=== PATIENT | female | born 1945 | race Two or more races ===

== ENCOUNTER 2017-03-04 11:32 | Inpatient (IN) | payer MEDICARE ==
[2017-03-04] MEDS ORDERED: Magnesium Hydroxide LIQ* 30 ML UDC PO PRN (16:11)
[2017-03-04] MEDS: oxyCODONE TAB* 5 MG TAB PO PRN ×2 (18:13→22:20)
[2017-03-04] MEDS: Senna TAB PO PRN (20:07)
[2017-03-04] MEDS: Docusate CAP* 100 MG PO SCH (20:08)
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
[2017-03-05] MEDS: Acetaminophen TAB* 325 MG PO PRN ×3 (00:25→16:09)
[2017-03-05] MEDS: oxyCODONE TAB* 5 MG TAB PO PRN ×4 (05:39→22:42)
[2017-03-05] MEDS: Montelukast Sodium TAB* 10 MG PO SCH (08:19)
[2017-03-05] MEDS: Docusate CAP* 100 MG PO SCH ×3 (08:19→21:30)
[2017-03-05 08:44] LABS: Hematocrit 30 % (35-47); Hemoglobin 10.1 g/dl (12.0-16.0); Mean Corpuscular HGB Conc 34 g/dl (31-36); Mean Corpuscular Hemoglobin 34 pg (27-31); Mean Corpuscular Volume 100 fL (80-97); Mean Platelet Volume 8 um3 (7.4-10.4); Red Blood Count 2.98 10^6/ul (4.0-5.4); Red Cell Distribution Width 13 % (10.5-15); White Blood Count 5.4 10^3/ul (3.5-10.8)
[2017-03-05 09:01] LABS: BUN/Creatinine Ratio 21.4 (8-20); Calcium 8.6 mg/dL (8.6-10.3); EGFR African American 106.7 (>60); Globulin 2.6 g/dL (2-4); Potassium 3.6 mmol/L (3.5-5.0); Total Bilirubin 0.5 mg/dL (0.2-1.0); Total Protein 5.6 g/dL (6.4-8.9)
--- NOTE | 2017-03-05 12:36 | PMRUTEAM ---
PMRU: Goals Current Status: Nursing: Current Status Skin Deviations [left flank] Abrasion Skin Deviations [Left Leg] Incision Physical Therapy: Current Status Bed Mobility Assistance 2 MIN ASSIST Transfer Moblility Assistance CHERELLE/ TOTAL ASSIST Ambulation Assistance NOT TESTED OCCUPATIONAL THERAPY: CURRENT STATUS: MAX ASSIST DRESSING AND TOILETING. BATHING MAX ASSIST. Rec Therapy: Current Status Summary of Assessment and Pt. was recently admitted, open to conversation Clinical Impression and engaged throughout. Pt. is a very physically active person and hopes to get back into these activities as soon as she can. Pt. was open to continued leisure visits and was interested in RT groups such as scrabble. Treatment Goals Pt. will engage in leisure activities while on the unit. Treatment Plan Provide RT services and encourage involvement. Social Work: Current Status Discharge Plan return home with home care svs and family support Potential for Family Training pt's is attentive and involved Anticipated Discharge Home Destination Discharge With return home with home care svs and family support Goals: PHYSICAL THERAPY GOALS: modified independent transfers with a walker. independent bed mobility. modified independent ambulation maintaining ttwb in LLE 50ft. 3 stairs. OCCUPATIONAL THERAPY GOALS: modified independent toileting, bathing, dressing, grooming, light household tasks. Social Work: Goals Discharge Plan return home with home care svs and family support Potential for Family Training pt's is attentive and involved Anticipated Discharge Home Destination Discharge With return home with home care svs and family support Care Plan: Care Plan DVT Prophylaxis- Improve/Maintain Start: 03/04/17 21:37 Freq: QSHIFT Status: Active Target: Activity Type Activity Date Activity User E-Sign Co-Sign Detail Recorded Client Recorded Date Recorded By Document 03/04/17 21:37 [id number] 03/04/17 21:38 [id number] 03/04/17 21:37 PMRU Outcome: DVT Prophylaxis Outcome/Goals Remains Free of DVT TEDS Stockings on Every AM, Off at HS Progression Toward Outcome/Goals Progressing Education-Improve/Maintain Start: 03/04/17 21:37 Freq: QSHIFT Status: Active Target: Activity Type Activity Date Activity User E-Sign Co-Sign Detail Recorded Client Recorded Date Recorded By Document 03/04/17 21:37 [id number] [id number] 03/04/17 21:38 [id number] 03/04/17 21:37 PMRU Outcome: Education Outcome/Goals Demonstrate/ Verbalize Understanding of Written Discharge Instructions Demonstrates Skills Encourage Questions Progression Toward Outcome/Goals Progressing Neurological- Improve/Maintain Start: 03/04/17 21:37 Freq: QSHIFT Status: Active Target: Activity Type Activity Date Activity User E-Sign Co-Sign Detail Recorded Client Recorded Date Recorded By Document 03/04/17 21:37 [id number] 03/04/17 21:38 [id number] 03/04/17 21:37 PMRU Outcome: Neurological Weakness/Aphasia Weakness Outcome/Goals Maintain/ Achieve Baseline Neurological Status Improve Neurological Status Maintain/ Improve Strength/ROM Progression Toward Outcome/Goals Progressing Pain/Comfort- Improve/Maintain Start: 03/04/17 21:37 Freq: QSHIFT Status: Active Target: Activity Type Activity Date Activity User E-Sign Co-Sign Detail Recorded Client Recorded Date Recorded By Document 03/04/17 21:37 [id number] 03/04/17 21:38 [id number] 03/04/17 21:37 PMRU Outcome: Pain/Comfort Outcome/Goals Demonstrates Knowledge and Use of Available Comfort Measures Maintain Comfort Level Allowing Patient to Fully Participate in Rehab Progression Toward Outcome/Goals Progressing Safety- Improve/Maintain Start: 03/04/17 21:37 Freq: QSHIFT Status: Active Target: Activity Type Activity Date Activity User E-Sign Co-Sign Detail Recorded Client Recorded Date Recorded By Document 03/04/17 21:37 [id number] 03/04/17 21:38 [id number] 03/04/17 21:37 PMRU Outcome: Safety Outcome/Goals Remain Free of Injury or Harm Cooperates with Safety Measures for Least Restrictive Environment Progression Toward Outcome/Goals Progressing Skin- Improve/Maintain Start: 03/04/17 21:37 Freq: QSHIFT Status: Active Target: Activity Type Activity Date Activity User E-Sign Co-Sign Detail Recorded Client Recorded Date Recorded By Document 03/04/17 21:37 [id number] 03/04/17 21:38 [id number] 03/04/17 21:37 PMRU Outcome: Skin Skin Risk Level Medium Skin Orders Air Mattress Outcome/Goals Maintain/ Improve Skin Intergrity Surgical Incisions Healing Progression Toward Outcome/Goals Progressing Medicine Note: Length of Stay: [3 weeks] Anticipated Discharge Destination: Home Tentative Discharge Date: [7/28/17] Discharged to: [home]
[2017-03-05] MEDS: Senna TAB PO PRN (21:30)
[2017-03-06] MEDS: Zolpidem TAB* 5 MG PO PRN (00:03)
[2017-03-06] MEDS: Acetaminophen TAB* 325 MG PO PRN ×2 (00:03→21:10)
[2017-03-06] MEDS: oxyCODONE TAB* 5 MG TAB PO PRN ×4 (02:48→21:15)
[2017-03-06] MEDS: Docusate CAP* 100 MG PO SCH ×2 (07:54→21:10)
[2017-03-06] MEDS: Montelukast Sodium TAB* 10 MG PO SCH (07:54)
[2017-03-06] MEDS ORDERED: Bisacodyl SUPP* 10 MG SUPP PR PRN (10:33)
[2017-03-06] MEDS: Polyethylene Glycol 3350* 17 GM PACKET PO SCH (12:26)
[2017-03-06] MEDS: Senna TAB PO PRN (21:10)
[2017-03-06] MEDS: LORazepam TAB(*) 0.5 MG PO PRN (22:33)
[2017-03-07] MEDS: oxyCODONE TAB* 5 MG TAB PO PRN ×6 (01:31→22:18)
[2017-03-07] MEDS: Montelukast Sodium TAB* 10 MG PO SCH (08:17)
[2017-03-07] MEDS: Docusate CAP* 100 MG PO SCH ×2 (08:17→20:06)
[2017-03-07] MEDS: Polyethylene Glycol 3350* 17 GM PACKET PO SCH (08:17)
[2017-03-07] MEDS ORDERED: [UNRECOGNIZED DRUG - OTHER] PO SCH (09:00)
[2017-03-07] MEDS: [UNRECOGNIZED DRUG - OTHER] PO SCH (18:14)
[2017-03-07] MEDS: [UNRECOGNIZED DRUG - OTHER] PO SCH (20:06)
[2017-03-07] MEDS: Senna TAB PO PRN (20:06)
[2017-03-07] MEDS: [UNRECOGNIZED DRUG - OTHER] PO SCH (21:08)
[2017-03-07] MEDS: TISSUE REJUVENATOR PO SCH (21:10)
[2017-03-07] MEDS: [UNRECOGNIZED DRUG - OTHER] PO SCH (21:11)
[2017-03-07] MEDS: [UNRECOGNIZED DRUG - OTHER] PO SCH (21:11)
[2017-03-07] MEDS: FORMULA PO SCH (21:14)
[2017-03-08] MEDS: Acetaminophen TAB* 325 MG PO PRN (01:12)
[2017-03-08] MEDS: Zolpidem TAB* 5 MG PO PRN (01:12)
[2017-03-08] MEDS: oxyCODONE TAB* 5 MG TAB PO PRN ×4 (02:41→21:07)
[2017-03-08] MEDS ORDERED: Omeprazole CAP* 20 MG ONE (05:09)
[2017-03-08] MEDS: Omeprazole CAP* 20 MG PO SCH ×2 (05:15→06:37)
[2017-03-08] MEDS: Polyethylene Glycol 3350* 17 GM PACKET PO SCH (07:39)
[2017-03-08] MEDS: Docusate CAP* 100 MG PO SCH ×2 (07:39→21:04)
[2017-03-08] MEDS: Montelukast Sodium TAB* 10 MG PO SCH (07:39)
[2017-03-08] MEDS: [UNRECOGNIZED DRUG - OTHER] PO SCH ×2 (07:40→21:06)
[2017-03-08] MEDS: FORMULA PO SCH ×2 (07:41→21:06)
[2017-03-08] MEDS: TISSUE REJUVENATOR PO SCH ×2 (07:41→21:06)
[2017-03-08] MEDS: [UNRECOGNIZED DRUG - OTHER] PO SCH ×2 (07:42→21:05)
[2017-03-08] MEDS: [UNRECOGNIZED DRUG - OTHER] PO SCH ×2 (07:43→21:05)
[2017-03-08] MEDS: [UNRECOGNIZED DRUG - OTHER] PO SCH (07:43)
[2017-03-08] MEDS: [UNRECOGNIZED DRUG - OTHER] PO SCH (17:34)
[2017-03-08] MEDS: [UNRECOGNIZED DRUG - OTHER] PO SCH (21:04)
[2017-03-08] MEDS: LORazepam TAB(*) 0.5 MG PO PRN (22:27)
[2017-03-09] MEDS: oxyCODONE TAB* 5 MG TAB PO PRN ×3 (02:00→20:51)
[2017-03-09] MEDS: Omeprazole CAP* 20 MG PO SCH (06:18)
[2017-03-09] MEDS: Montelukast Sodium TAB* 10 MG PO SCH (08:13)
[2017-03-09] MEDS: Docusate CAP* 100 MG PO SCH ×2 (08:13→20:12)
[2017-03-09] MEDS: TISSUE REJUVENATOR PO SCH ×2 (08:14→20:12)
[2017-03-09] MEDS: [UNRECOGNIZED DRUG - OTHER] PO SCH ×2 (08:14→20:12)
[2017-03-09] MEDS: [UNRECOGNIZED DRUG - OTHER] PO SCH ×2 (08:15→20:14)
[2017-03-09] MEDS: [UNRECOGNIZED DRUG - OTHER] PO SCH ×2 (08:15→11:20)
[2017-03-09] MEDS: Polyethylene Glycol 3350* 17 GM PACKET PO SCH (08:20)
[2017-03-09] MEDS: FORMULA PO SCH ×2 (11:20→19:02)
[2017-03-09] MEDS: [UNRECOGNIZED DRUG - OTHER] PO SCH ×2 (11:26→19:02)
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
[2017-03-09] MEDS: [UNRECOGNIZED DRUG - OTHER] PO SCH (18:51)
[2017-03-09] MEDS: [UNRECOGNIZED DRUG - OTHER] PO SCH (20:15)
[2017-03-10] MEDS: oxyCODONE TAB* 5 MG TAB PO PRN ×4 (01:37→20:27)
[2017-03-10] MEDS: Omeprazole CAP* 20 MG PO SCH (07:32)
[2017-03-10] MEDS: Polyethylene Glycol 3350* 17 GM PACKET PO SCH (08:17)
[2017-03-10] MEDS: Docusate CAP* 100 MG PO SCH ×2 (08:17→20:29)
[2017-03-10] MEDS: Montelukast Sodium TAB* 10 MG PO SCH (08:17)
[2017-03-10] MEDS: [UNRECOGNIZED DRUG - OTHER] PO SCH ×2 (08:18→20:26)
[2017-03-10] MEDS: TISSUE REJUVENATOR PO SCH ×2 (08:19→20:25)
[2017-03-10] MEDS: [UNRECOGNIZED DRUG - OTHER] PO SCH (08:19)
[2017-03-10] MEDS: [UNRECOGNIZED DRUG - OTHER] PO SCH ×2 (08:19→18:15)
[2017-03-10] MEDS: [UNRECOGNIZED DRUG - OTHER] PO SCH ×2 (08:19→20:26)
[2017-03-10] MEDS: FORMULA PO SCH ×2 (08:20→18:15)
[2017-03-10] MEDS: [UNRECOGNIZED DRUG - OTHER] PO SCH (17:47)
[2017-03-10] MEDS: [UNRECOGNIZED DRUG - OTHER] PO SCH (20:26)
[2017-03-11] MEDS: oxyCODONE TAB* 5 MG TAB PO PRN ×5 (03:40→23:41)
[2017-03-11] MEDS: Omeprazole CAP* 20 MG PO SCH (06:09)
[2017-03-11] MEDS: [UNRECOGNIZED DRUG - OTHER] PO SCH ×2 (10:00→19:37)
[2017-03-11] MEDS: TISSUE REJUVENATOR PO SCH ×2 (10:00→19:37)
[2017-03-11] MEDS: Montelukast Sodium TAB* 10 MG PO SCH (10:01)
[2017-03-11] MEDS: [UNRECOGNIZED DRUG - OTHER] PO SCH ×2 (10:01→17:21)
[2017-03-11] MEDS: Docusate CAP* 100 MG PO SCH ×2 (10:01→20:51)
[2017-03-11] MEDS: [UNRECOGNIZED DRUG - OTHER] PO SCH ×2 (10:01→19:37)
[2017-03-11] MEDS: [UNRECOGNIZED DRUG - OTHER] PO SCH (10:01)
[2017-03-11] MEDS: Polyethylene Glycol 3350* 17 GM PACKET PO SCH (10:02)
[2017-03-11] MEDS: FORMULA PO SCH ×2 (10:02→17:20)
[2017-03-11] MEDS: [UNRECOGNIZED DRUG - OTHER] PO SCH (17:19)
[2017-03-11] MEDS: [UNRECOGNIZED DRUG - OTHER] PO SCH (19:35)
[2017-03-11] MEDS: Heparin VIAL(*) 5000 UNITS/ML VIAL (FIVE THOUSAND) SUBCUT SCH (20:52)
[2017-03-11] MEDS: Acetaminophen TAB* 325 MG PO PRN (22:09)
[2017-03-12] MEDS: oxyCODONE TAB* 5 MG TAB PO PRN ×4 (03:33→18:54)
[2017-03-12] MEDS: Omeprazole CAP* 20 MG PO SCH (06:07)
[2017-03-12] MEDS: Acetaminophen TAB* 325 MG PO PRN ×2 (06:13→22:20)
[2017-03-12] MEDS: Polyethylene Glycol 3350* 17 GM PACKET PO SCH ×2 (08:30→08:45)
[2017-03-12] MEDS: Montelukast Sodium TAB* 10 MG PO SCH (08:30)
[2017-03-12] MEDS: Docusate CAP* 100 MG PO SCH ×2 (08:30→20:50)
[2017-03-12] MEDS: [UNRECOGNIZED DRUG - OTHER] PO SCH ×2 (08:31→17:33)
[2017-03-12] MEDS: [UNRECOGNIZED DRUG - OTHER] PO SCH (08:31)
[2017-03-12] MEDS: [UNRECOGNIZED DRUG - OTHER] PO SCH ×2 (08:32→20:55)
[2017-03-12] MEDS: TISSUE REJUVENATOR PO SCH ×2 (08:32→20:56)
[2017-03-12] MEDS: [UNRECOGNIZED DRUG - OTHER] PO SCH ×2 (08:33→20:55)
[2017-03-12] MEDS: Heparin VIAL(*) 5000 UNITS/ML VIAL (FIVE THOUSAND) SUBCUT SCH ×2 (08:37→20:58)
[2017-03-12 09:06] LABS: Hematocrit 31 % (35-47); Hemoglobin 10.1 g/dl (12.0-16.0); Mean Corpuscular HGB Conc 33 g/dl (31-36); Mean Corpuscular Hemoglobin 33 pg (27-31); Mean Corpuscular Volume 101 fL (80-97); Mean Platelet Volume 7 um3 (7.4-10.4); Red Blood Count 3.02 10^6/ul (4.0-5.4); Red Cell Distribution Width 13 % (10.5-15); White Blood Count 6.6 10^3/ul (3.5-10.8)
[2017-03-12 09:20] LABS: Albumin 3.3 g/dL (3.2-5.2); BUN/Creatinine Ratio 26.7 (8-20); Calcium 8.8 mg/dL (8.6-10.3); EGFR African American 98.5 (>60); EGFR Non-African American 76.6 (>60); Globulin 2.7 g/dL (2-4); Potassium 3.8 mmol/L (3.5-5.0); Total Bilirubin 0.7 mg/dL (0.2-1.0)
[2017-03-12] MEDS: FORMULA PO SCH ×2 (09:34→17:33)
[2017-03-12] MEDS: [UNRECOGNIZED DRUG - OTHER] PO SCH (17:33)
[2017-03-12] MEDS: [UNRECOGNIZED DRUG - OTHER] PO SCH (20:55)
[2017-03-13] MEDS: oxyCODONE TAB* 5 MG TAB PO PRN ×5 (00:29→19:55)
[2017-03-13] MEDS: Omeprazole CAP* 20 MG PO SCH (04:50)
[2017-03-13] MEDS: Montelukast Sodium TAB* 10 MG PO SCH (09:01)
[2017-03-13] MEDS: Polyethylene Glycol 3350* 17 GM PACKET PO SCH (09:01)
[2017-03-13] MEDS: Docusate CAP* 100 MG PO SCH ×2 (09:01→19:53)
[2017-03-13] MEDS: [UNRECOGNIZED DRUG - OTHER] PO SCH (09:02)
[2017-03-13] MEDS: TISSUE REJUVENATOR PO SCH ×2 (09:02→19:54)
[2017-03-13] MEDS: [UNRECOGNIZED DRUG - OTHER] PO SCH ×2 (09:03→18:06)
[2017-03-13] MEDS: [UNRECOGNIZED DRUG - OTHER] PO SCH ×2 (09:03→19:53)
[2017-03-13] MEDS: [UNRECOGNIZED DRUG - OTHER] PO SCH ×2 (09:04→19:54)
[2017-03-13] MEDS: FORMULA PO SCH ×2 (09:05→18:06)
[2017-03-13] MEDS: Heparin VIAL(*) 5000 UNITS/ML VIAL (FIVE THOUSAND) SUBCUT SCH ×2 (09:08→20:06)
[2017-03-13] MEDS: Acetaminophen TAB* 325 MG PO PRN ×2 (15:23→22:08)
[2017-03-13] MEDS: [UNRECOGNIZED DRUG - OTHER] PO SCH (18:06)
[2017-03-13] MEDS: [UNRECOGNIZED DRUG - OTHER] PO SCH (19:52)
[2017-03-13] MEDS: BORON PO SCH (21:56)
[2017-03-13] MEDS: Zolpidem TAB* 5 MG PO PRN (22:08)
[2017-03-14] MEDS: oxyCODONE TAB* 5 MG TAB PO PRN ×6 (00:25→23:30)
[2017-03-14] MEDS: Acetaminophen TAB* 325 MG PO PRN ×3 (03:38→21:49)
[2017-03-14] MEDS: Omeprazole CAP* 20 MG PO SCH (06:26)
[2017-03-14] MEDS: Polyethylene Glycol 3350* 17 GM PACKET PO SCH (09:18)
[2017-03-14] MEDS: Docusate CAP* 100 MG PO SCH ×2 (09:19→21:43)
[2017-03-14] MEDS: Montelukast Sodium TAB* 10 MG PO SCH (09:19)
[2017-03-14] MEDS: [UNRECOGNIZED DRUG - OTHER] PO SCH (09:19)
[2017-03-14] MEDS: [UNRECOGNIZED DRUG - OTHER] PO SCH ×2 (09:20→21:44)
[2017-03-14] MEDS: [UNRECOGNIZED DRUG - OTHER] PO SCH ×2 (09:20→17:39)
[2017-03-14] MEDS: [UNRECOGNIZED DRUG - OTHER] PO SCH ×2 (09:20→21:45)
[2017-03-14] MEDS: FORMULA PO SCH ×2 (09:21→17:40)
[2017-03-14] MEDS: TISSUE REJUVENATOR PO SCH ×2 (09:21→21:44)
[2017-03-14] MEDS: Heparin VIAL(*) 5000 UNITS/ML VIAL (FIVE THOUSAND) SUBCUT SCH ×2 (09:22→21:42)
[2017-03-14] MEDS: BORON PO SCH ×2 (10:31→21:47)
[2017-03-14] MEDS: [UNRECOGNIZED DRUG - OTHER] PO SCH (17:40)
[2017-03-14] MEDS: [UNRECOGNIZED DRUG - OTHER] PO SCH (21:44)
[2017-03-15] MEDS: Zolpidem TAB* 5 MG PO PRN (02:17)
[2017-03-15] MEDS: Omeprazole CAP* 20 MG PO SCH (05:29)
[2017-03-15] MEDS: oxyCODONE TAB* 5 MG TAB PO PRN ×4 (05:29→21:19)
[2017-03-15] MEDS: Heparin VIAL(*) 5000 UNITS/ML VIAL (FIVE THOUSAND) SUBCUT SCH ×2 (08:41→21:19)
[2017-03-15] MEDS: Montelukast Sodium TAB* 10 MG PO SCH (08:43)
[2017-03-15] MEDS: Docusate CAP* 100 MG PO SCH ×2 (08:43→21:18)
[2017-03-15] MEDS: BORON PO SCH ×2 (08:44→21:17)
[2017-03-15] MEDS: [UNRECOGNIZED DRUG - OTHER] PO SCH (08:45)
[2017-03-15] MEDS: [UNRECOGNIZED DRUG - OTHER] PO SCH ×2 (08:45→21:18)
[2017-03-15] MEDS: [UNRECOGNIZED DRUG - OTHER] PO SCH ×2 (08:46→18:37)
[2017-03-15] MEDS: TISSUE REJUVENATOR PO SCH ×2 (08:46→21:18)
[2017-03-15] MEDS: [UNRECOGNIZED DRUG - OTHER] PO SCH ×2 (08:46→21:18)
[2017-03-15] MEDS: Polyethylene Glycol 3350* 17 GM PACKET PO SCH (08:47)
[2017-03-15] MEDS: FORMULA PO SCH ×2 (08:47→18:35)
[2017-03-15] MEDS: [UNRECOGNIZED DRUG - OTHER] PO SCH (18:51)
[2017-03-15] MEDS: [UNRECOGNIZED DRUG - OTHER] PO SCH (21:16)
[2017-03-16] MEDS: oxyCODONE TAB* 5 MG TAB PO PRN ×4 (02:36→20:13)
[2017-03-16] MEDS: Acetaminophen TAB* 325 MG PO PRN ×3 (03:03→23:23)
[2017-03-16] MEDS: Omeprazole CAP* 20 MG PO SCH (06:16)
[2017-03-16] MEDS: [UNRECOGNIZED DRUG - OTHER] PO SCH ×2 (07:58→20:11)
[2017-03-16] MEDS: [UNRECOGNIZED DRUG - OTHER] PO SCH ×2 (07:58→20:11)
[2017-03-16] MEDS: BORON PO SCH ×2 (07:59→20:10)
[2017-03-16] MEDS: FORMULA PO SCH ×2 (07:59→19:05)
[2017-03-16] MEDS: TISSUE REJUVENATOR PO SCH ×2 (08:00→20:10)
[2017-03-16] MEDS: [UNRECOGNIZED DRUG - OTHER] PO SCH ×2 (08:00→19:05)
[2017-03-16] MEDS: Montelukast Sodium TAB* 10 MG PO SCH (08:01)
[2017-03-16] MEDS: Docusate CAP* 100 MG PO SCH ×2 (08:01→20:15)
[2017-03-16] MEDS: Polyethylene Glycol 3350* 17 GM PACKET PO SCH (08:01)
[2017-03-16] MEDS: Heparin VIAL(*) 5000 UNITS/ML VIAL (FIVE THOUSAND) SUBCUT SCH ×2 (08:01→20:15)
[2017-03-16] MEDS: [UNRECOGNIZED DRUG - OTHER] PO SCH (09:08)
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
[2017-03-16] MEDS: [UNRECOGNIZED DRUG - OTHER] PO SCH (18:07)
[2017-03-16] MEDS: [UNRECOGNIZED DRUG - OTHER] PO SCH (20:08)
[2017-03-17] MEDS: oxyCODONE TAB* 5 MG TAB PO PRN ×3 (03:08→21:19)
[2017-03-17] MEDS: Omeprazole CAP* 20 MG PO SCH (06:42)
[2017-03-17] MEDS: Docusate CAP* 100 MG PO SCH ×2 (08:59→21:18)
[2017-03-17] MEDS: Polyethylene Glycol 3350* 17 GM PACKET PO SCH (09:00)
[2017-03-17] MEDS: Montelukast Sodium TAB* 10 MG PO SCH (09:00)
[2017-03-17] MEDS: BORON PO SCH ×2 (09:01→21:20)
[2017-03-17] MEDS: [UNRECOGNIZED DRUG - OTHER] PO SCH ×2 (09:02→21:21)
[2017-03-17] MEDS: TISSUE REJUVENATOR PO SCH ×2 (09:02→21:21)
[2017-03-17] MEDS: [UNRECOGNIZED DRUG - OTHER] PO SCH ×2 (09:03→21:21)
[2017-03-17] MEDS: [UNRECOGNIZED DRUG - OTHER] PO SCH ×2 (09:04→18:06)
[2017-03-17] MEDS: FORMULA PO SCH ×2 (09:05→18:06)
[2017-03-17] MEDS: [UNRECOGNIZED DRUG - OTHER] PO SCH (09:09)
[2017-03-17] MEDS: Heparin VIAL(*) 5000 UNITS/ML VIAL (FIVE THOUSAND) SUBCUT SCH ×2 (09:09→21:21)
[2017-03-17] MEDS: [UNRECOGNIZED DRUG - OTHER] PO SCH (18:08)
[2017-03-17] MEDS: [UNRECOGNIZED DRUG - OTHER] PO SCH (21:20)
[2017-03-18] MEDS: oxyCODONE TAB* 5 MG TAB PO PRN ×4 (03:36→20:20)
[2017-03-18] MEDS: Omeprazole CAP* 20 MG PO SCH (06:24)
[2017-03-18] MEDS: Heparin VIAL(*) 5000 UNITS/ML VIAL (FIVE THOUSAND) SUBCUT SCH ×2 (08:18→20:23)
[2017-03-18] MEDS: Docusate CAP* 100 MG PO SCH ×2 (08:20→20:20)
[2017-03-18] MEDS: Montelukast Sodium TAB* 10 MG PO SCH (08:20)
[2017-03-18] MEDS: TISSUE REJUVENATOR PO SCH ×2 (08:21→20:23)
[2017-03-18] MEDS: [UNRECOGNIZED DRUG - OTHER] PO SCH ×2 (08:21→20:22)
[2017-03-18] MEDS: FORMULA PO SCH ×2 (08:22→17:37)
[2017-03-18] MEDS: BORON PO SCH ×2 (08:23→20:21)
[2017-03-18] MEDS: [UNRECOGNIZED DRUG - OTHER] PO SCH ×2 (08:24→17:36)
[2017-03-18] MEDS: [UNRECOGNIZED DRUG - OTHER] PO SCH ×2 (08:24→20:22)
[2017-03-18] MEDS: [UNRECOGNIZED DRUG - OTHER] PO SCH (08:25)
[2017-03-18] MEDS: Polyethylene Glycol 3350* 17 GM PACKET PO SCH (08:26)
[2017-03-18] MEDS ORDERED: LORazepam TAB(*) 0.5 MG PO PRN (17:03)
[2017-03-18] MEDS: [UNRECOGNIZED DRUG - OTHER] PO SCH (17:37)
[2017-03-18] MEDS ORDERED: Zolpidem TAB* 5 MG PO PRN (18:21)
[2017-03-18] MEDS: Senna TAB PO PRN (20:20)
[2017-03-18] MEDS: [UNRECOGNIZED DRUG - OTHER] PO SCH (20:21)
[2017-03-19] MEDS: oxyCODONE TAB* 5 MG TAB PO PRN ×2 (01:30→08:54)
[2017-03-19] MEDS: Omeprazole CAP* 20 MG PO SCH (05:39)
[2017-03-19 06:38] VITALS: BP 93/57
[2017-03-19 07:06] LABS: Hematocrit 35 % (35-47); Hemoglobin 11.5 g/dl (12.0-16.0); Mean Corpuscular HGB Conc 33 g/dl (31-36); Mean Corpuscular Hemoglobin 33 pg (27-31); Mean Corpuscular Volume 102 fL (80-97); Mean Platelet Volume 7 um3 (7.4-10.4); Red Blood Count 3.45 10^6/ul (4.0-5.4); Red Cell Distribution Width 14 % (10.5-15); White Blood Count 3.4 10^3/ul (3.5-10.8)
[2017-03-19 07:10] LABS: Add Diff/Slide Review? Slide Review Added; Comments Flag Yes
[2017-03-19 07:19] LABS: Albumin 3.3 g/dL (3.2-5.2); BUN/Creatinine Ratio 38.5 (8-20); Calcium 8.9 mg/dL (8.6-10.3); EGFR African American 116.2 (>60); EGFR Non-African American 90.4 (>60); Globulin 2.9 g/dL (2-4); Potassium 3.8 mmol/L (3.5-5.0); Total Bilirubin 0.4 mg/dL (0.2-1.0); Total Protein 6.2 g/dL (6.4-8.9)
[2017-03-19] MEDS: [UNRECOGNIZED DRUG - OTHER] PO SCH (08:53)
[2017-03-19] MEDS: [UNRECOGNIZED DRUG - OTHER] PO SCH (08:53)
[2017-03-19] MEDS: BORON PO SCH (08:53)
[2017-03-19] MEDS: FORMULA PO SCH (08:53)
[2017-03-19] MEDS: TISSUE REJUVENATOR PO SCH (08:53)
[2017-03-19] MEDS: [UNRECOGNIZED DRUG - OTHER] PO SCH (08:53)
[2017-03-19] MEDS: [UNRECOGNIZED DRUG - OTHER] PO SCH (08:53)
[2017-03-19] MEDS: Montelukast Sodium TAB* 10 MG PO SCH (08:54)
[2017-03-19] MEDS: Docusate CAP* 100 MG PO SCH (08:54)
[2017-03-19] MEDS: Heparin VIAL(*) 5000 UNITS/ML VIAL (FIVE THOUSAND) SUBCUT SCH (08:54)
[2017-03-19] MEDS: Polyethylene Glycol 3350* 17 GM PACKET PO SCH (08:55)
--- NOTE | 2017-03-20 20:09 | DS ---
CC: Dr. Nickolas Salinas; [place], [place] * DISCHARGE SUMMARY: DATE OF ADMISSION: 03/04/17 DATE OF DISCHARGE: 03/19/17 DISCHARGE DIAGNOSES: 1. Left femoral neck fracture. 2. Closed head injury. 3. Right lumbosacral plexopathy/neurapraxia. HISTORY OF PRESENT ILLNESS AND HOSPITAL COURSE: For a complete history of the events leading up to her rehab stay, please see the history and physical dictated by me on 03/04/17. While on the rehab unit, the patient was fairly healthy from a regular point of view. Her right leg weakness, which was felt to be due to lumbosacral plexus injury, slowly improved. She had ongoing difficulty with dorsiflexion weakness, but this too improved by the time of discharge. The patient was started on heparin for DVT prophylaxis after her MRI was reviewed. The patient did follow up with her orthopedic surgeon, Dr. Juan José Balbuena, of [place]. He recommended ongoing toe-touch weightbearing status to the left lower extremity. Her herbert were removed by her surgeon. Otherwise, the patient was medically stable. The patient was seen by both Physical and Occupational Therapy while on the rehab unit. She made good gains with both disciplines. With the physical therapy at the time of admission, the patient required max assist to transfer. She was unable to ambulate, unable to hop. She was max assist for toileting and toilet transfers with occupational therapy. By the time of discharge, the patient was independently transferring, independently ambulating with a rolling walker 150 feet, independent with wheelchair use, independent with her activities of daily living with occupational therapy, modified independent with toileting and bathing. The patient was discharged home on 03/19/17. DISCHARGE DIET: Regular. DISCHARGE MEDICATIONS: 1. Omeprazole 20 mg daily. 2. Singulair 10 mg daily. 3. Ativan 0.5 mg every 6 hours as needed. 4. Oxycodone 5 mg every 4 hours as needed for pain. 5. Ambien 5 mg at bedtime as needed. SERVICES AFTER DISCHARGE: Through [facility]. She will have home nursing, home physical therapy, home occupational therapy, and home health aide. FOLLOWUP: She will follow up with Dr. Juan José Balbuena in 1 month. She will also follow up with her primary care doctor, Dr. Salinas, as well as physical therapist when she is ready to weightbear, Christiano Lara. [id number]/CPS #: [id number]
== END 2017-03-19 11:54 | disposition home or self-care (01) | DRG 561 ==
LOC: PMRU 14:43
PROVIDERS: ADMIT Physical Medicine & Rehabilitation; ATTEND Physical Medicine & Rehabilitation
PROC: F07Z5ZZ Bed Mobility Treatment (ICD-10-PCS; principal; 2017-03-04)
PROC: F07Z8ZZ Transfer Training Treatment (ICD-10-PCS; 2017-03-04)
PROC: F07Z9ZZ Gait Training/Functional Ambulation Treatment (ICD-10-PCS; 2017-03-04)
PROC: F07Z4ZZ Wheelchair Mobility Treatment (ICD-10-PCS; 2017-03-04)
PROC: F08Z0ZZ Bathing/Showering Techniques Treatment (ICD-10-PCS; 2017-03-04)
PROC: F08Z1ZZ Dressing Techniques Treatment (ICD-10-PCS; 2017-03-04)
PROC: F08Z3ZZ Feeding/Eating Treatment (ICD-10-PCS; 2017-03-04)
DX: S72.002D Fracture of unspecified part of neck of left femur, subsequent encounter for closed fracture with routine healing (principal); I95.9 Hypotension, unspecified; V18.0XXD Pedal cycle driver injured in noncollision transport accident in nontraffic accident, subsequent encounter; S06.309D Unspecified focal traumatic brain injury with loss of consciousness of unspecified duration, subsequent encounter; S74.01XD Injury of sciatic nerve at hip and thigh level, right leg, subsequent encounter; G47.00 Insomnia, unspecified
CPT/HCPCS: 36415; 80053; 85025; A9270-GY; J1644